=== PATIENT | female | born 1975 | race Caucasian/White ===

== ENCOUNTER → 2019-08-08 | Outpatient (CLI) | payer BC ==
[~2019-08-08] MED LIST: CELE1CAP4 PO; COSE1INJ SC; D 50CAP2 PO; FLON1SPR; MAGN400C2 PO; NEXI40CA PO; OLOP0.1D OU; SOMA350T PO; VITA-157 PO; VITA80003 PO; VITAD1000T PO; VITATAB73 PO; WELLTAB38 PO; WELLTAB40 PO; [UNRECOGNIZED DRUG - OTHER] INH
== END ==
LOC: M LABSMTC 09:35
PROVIDERS: ATTEND Anesthesiology
DX: Z01.812 Encounter for preprocedural laboratory examination (principal); Z11.59 Encounter for screening for other viral diseases
CPT/HCPCS: C9803; U0003

== ENCOUNTER 2019-08-11 10:46 | Day surgery (SDC) | payer BC ==
[~2019-08-11] VITALS: Ht 170.2 cm; Wt 101.2 kg
[~2019-08-11 10:46] MED LIST changes: +LIDOCAINE 2% 100MG/5ML SDV (FOR ANES.) As Ordered ONE; +NS 1,000 ML IV ONE; +propofoL 200 MG/20 ML VIAL As Ordered ONE
[2019-08-11] MEDS ORDERED: fentaNYL 100 MCG/2 ML INJECTION (J3010) As Ordered ONE (11:45)
[2019-08-11] MEDS ORDERED: propofoL 200 MG/20 ML VIAL As Ordered ONE (12:13)
--- NOTE | 2019-08-11 12:35 | ROOR ---
Patient Name: Swetha Shannon Procedure Date: 08/11/2019 11:36 AM Date of : 1975 Age: 43 Room: [facility] Gender: Female Note Status: Finalized Procedure: Upper GI endoscopy Indications: Epigastric abdominal pain, Follow-up of peptic ulcer Providers: Mic Maxwell MD Referring MD: ONOFRE IRENE NP Requesting Provider: Medicines: Monitored Anesthesia Care Complications: No immediate complications. Procedure: Pre-Anesthesia Assessment: - Prior to the procedure, a History and Physical was performed, and patient medications and allergies were reviewed. The patient is competent. The risks and benefits of the procedure and the sedation options and risks were discussed with the patient. All questions were answered and informed consent was obtained. Patient identification and proposed procedure were verified by the physician, the nurse and the anesthesiologist in the procedure room. Mental Status Examination: alert and oriented. Airway Examination: normal oropharyngeal airway and neck mobility. Respiratory Examination: clear to auscultation. CV Examination: normal. Prophylactic Antibiotics: The patient does not require prophylactic antibiotics. Prior Anticoagulants: The patient has taken no previous anticoagulant or antiplatelet agents. ASA Grade Assessment: II - A patient with mild systemic disease. After reviewing the risks and benefits, the patient was deemed in satisfactory condition to undergo the procedure. The anesthesia plan was to use monitored anesthesia care (MAC). Immediately prior to administration of medications, the patient was re-assessed for adequacy to receive sedatives. The heart rate, respiratory rate, oxygen saturations, blood pressure, adequacy of pulmonary ventilation, and response to care were monitored throughout the procedure. The physical status of the patient was re-assessed after the procedure. The Endoscope was introduced through the mouth, and advanced to the second part of duodenum. The upper GI endoscopy was accomplished without difficulty. The patient tolerated the procedure well. Findings: The Z-line was irregular and was found 39 cm from the incisors. Scattered mild inflammation characterized by erythema and granularity was found in the gastric antrum. Biopsies were taken with a cold forceps for Helicobacter pylori testing. Verification of patient identification for the specimen was done by the physician and nurse using the patient's name, date and medical record number. Estimated blood loss was minimal. Multiple 6 to 15 mm pedunculated and sessile fundic gland polyps with no bleeding and no stigmata of recent bleeding were found in the gastric fundus and in the gastric body. The polyp was removed with a cold biopsy forceps. Resection and retrieval were complete. The duodenal bulb and second portion of the duodenum were normal. Biopsies for histology were taken with a cold forceps for evaluation of celiac disease. Impression: - Z-line irregular, 39 cm from the incisors. - Gastritis. Biopsied. - Multiple fundic gland polyps. Resected and retrieved. - Normal duodenal bulb and second portion of the duodenum. Biopsied. Recommendation: - Patient has a contact number available for emergencies. The signs and symptoms of potential delayed complications were discussed with the patient. Return to normal activities tomorrow. Written discharge instructions were provided to the patient. - High fiber diet. - Continue present medications. - Follow an antireflux regimen. - Use Pepcid (famotidine) 20 mg PO Twice daily ( take car ferry master on empty stomach and at bedtime) for 6 weeks. - - Stop nexium or taper off if tolerating PEPCID. - Await pathology results. - Telephone GI clinic for pathology results in 2 weeks. - Return to primary care physician. Mic Maxwell MD Mic Maxwell MD 08/11/2019 12:35:44 PM Electronically signed by Mic Maxwell MD Number of Addenda: 0 Note Initiated On: 08/11/2019 11:36 AM Estimated Blood Loss: Estimated blood loss was minimal.
--- NOTE | 2019-08-11 12:41 | ROOR ---
Patient Name: Swetha Shannon Procedure Date: 08/11/2019 11:37 AM Date of : 1975 Age: 43 Room: [facility] Gender: Female Note Status: Finalized Procedure: Colonoscopy Indications: Screening for colorectal malignant neoplasm, Family h/o uterine cancer in mother. Providers: Mic Maxwell MD Referring MD: ONOFRE IRENE NP Requesting Provider: Medicines: Monitored Anesthesia Care Complications: No immediate complications. Procedure: Pre-Anesthesia Assessment: - Prior to the procedure, a History and Physical was performed, and patient medications and allergies were reviewed. The patient is competent. The risks and benefits of the procedure and the sedation options and risks were discussed with the patient. All questions were answered and informed consent was obtained. Patient identification and proposed procedure were verified by the physician, the nurse and the anesthesiologist in the procedure room. Mental Status Examination: alert and oriented. Airway Examination: normal oropharyngeal airway and neck mobility. Respiratory Examination: clear to auscultation. CV Examination: normal. Prophylactic Antibiotics: The patient does not require prophylactic antibiotics. Prior Anticoagulants: The patient has taken no previous anticoagulant or antiplatelet agents. ASA Grade Assessment: II - A patient with mild systemic disease. After reviewing the risks and benefits, the patient was deemed in satisfactory condition to undergo the procedure. The anesthesia plan was to use monitored anesthesia care (MAC). Immediately prior to administration of medications, the patient was re-assessed for adequacy to receive sedatives. The heart rate, respiratory rate, oxygen saturations, blood pressure, adequacy of pulmonary ventilation, and response to care were monitored throughout the procedure. The physical status of the patient was re-assessed after the procedure. The Colonoscope was introduced through the anus and advanced to the terminal ileum, with identification of the appendiceal orifice and IC valve. The colonoscopy was performed without difficulty. The patient tolerated the procedure well. The quality of the bowel preparation was good. The terminal ileum, ileocecal valve, appendiceal orifice, and rectum were photographed. Scope insertion time was 3 minutes. Scope withdrawal time was 9 minutes. The total duration of the procedure was 12 minutes. Findings: The perianal and digital rectal examinations were normal. The terminal ileum appeared normal. Three sessile polyps were found in the cecum. The polyps were 3 to 5 mm in size. These polyps were removed with a cold biopsy forceps. Resection and retrieval were complete. Verification of patient identification for the specimen was done by the physician and nurse using the patient's name, date and medical record number. Estimated blood loss was minimal. A 4 mm polyp was found in the transverse colon. The polyp was sessile. The polyp was removed with a cold biopsy forceps. Resection and retrieval were complete. Multiple small and large-mouthed diverticula were found from sigmoid to descending colon. There was no evidence of diverticular bleeding. Non-bleeding external and internal hemorrhoids were found during retroflexion. The hemorrhoids were medium-sized. Impression: - The examined portion of the ileum was normal. - Three 3 to 5 mm polyps in the cecum, removed with a cold biopsy forceps. Resected and retrieved. - One 4 mm polyp in the transverse colon, removed with a cold biopsy forceps. Resected and retrieved. - Severe diverticulosis from sigmoid to descending colon. There was no evidence of diverticular bleeding. - Non-bleeding external and internal hemorrhoids. Recommendation: - Patient has a contact number available for emergencies. The signs and symptoms of potential delayed complications were discussed with the patient. Return to normal activities tomorrow. Written discharge instructions were provided to the patient. - High fiber diet. - Continue present medications. - Use fiber, for example Citrucel, Fibercon, Konsyl or Metamucil. - Await pathology results. - Repeat colonoscopy in 3 - 5 years for surveillance of multiple polyps. - Telephone GI clinic for pathology results in 2 weeks. - Return to primary care physician. Mic Maxwell MD Mic Maxwell MD 08/11/2019 12:40:46 PM Electronically signed by Mic Maxwell MD Number of Addenda: 0 Note Initiated On: 08/11/2019 11:37 AM Estimated Blood Loss: Estimated blood loss was minimal.
[2019-08-11 12:45] VITALS: BP 169/82
== END 2019-08-11 13:15 | disposition home or self-care (01) ==
LOC: M OPP 10:46
PROVIDERS: ATTEND Internal Medicine Gastroenterology
DX: Z12.11 Encounter for screening for malignant neoplasm of colon (principal); K63.5 Polyp of colon; K64.8 Other hemorrhoids; K57.30 Diverticulosis of large intestine without perforation or abscess without bleeding; K22.8 Other specified diseases of esophagus; K29.70 Gastritis, unspecified, without bleeding; K31.7 Polyp of stomach and duodenum; R10.13 Epigastric pain; K27.9 Peptic ulcer, site unspecified, unspecified as acute or chronic, without hemorrhage or perforation; Z79.899 Other long term (current) drug therapy; Z88.2 Allergy status to sulfonamides; Z88.8 Allergy status to other drugs, medicaments and biological substances
CPT/HCPCS: 43239; 45380; 88305; J3010